=== PATIENT | male | born 1965 | race Caucasian/White ===

== ENCOUNTER 2020-11-29 07:46 | Day surgery (SDC) | payer BC ==
[2020-11-25 10:34] VITALS: BMI 29.1
[~2020-11-29 07:46] MED LIST: LACTATED RINGERS 1,000 ML IV SCH; LIDOCAINE 1% (10MG/ML) FOR IV START INTRADERMA PRN
[2020-11-29] MEDS ORDERED: LIDOCAINE 1% (10MG/ML) FOR IV START INTRADERMA ONE (08:22)
[2020-11-29] MEDS ORDERED: INSULIN ASPART (NovoLOG) 100 UNIT/ML VIAL SQ ONE (08:24)
[2020-11-29] MEDS ORDERED: LIDOCAINE 1% INJ 10MG/ML (20 ML MDV) ONE (08:25)
[2020-11-29] MEDS ORDERED: PROPOFOL 10 MG/ML 20 ML VIAL IV ONE (08:25)
[2020-11-29 08:26] LABS: Glucose,Whole Blood 250 mg/dL (75-99)
[2020-11-29 08:31] VITALS: RESP 16; TEMP 97.3
--- NOTE | 2020-11-29 09:08 | P.PCN ---
Date of Procedure: 11/29/20 Description of Procedure: BRIEF HISTORY: Patient is a 55-year-old male presenting for outpatient colonoscopy for evaluation of history of colon polyps. He denies any change in bowel habits or blood per rectum. He has had polypectomy in the past and reports 2 prior colonoscopies PROCEDURE PERFORMED: Colonoscopy with polypectomy. PREOPERATIVE DIAGNOSIS: History of colon polyps, last colonoscopy 35 years ago. ESTIMATED BLOOD LOSS: Minimal. IV sedation per Anesthesia. PROCEDURE: After informed consent was obtained, the patient, was brought into the endoscopy unit. IV sedation was administered by Anesthesia under continuous monitoring. Digital rectal examination was normal. Initially the Olympus CF-190 flexible video colonoscope was then inserted in the rectum, gradually advanced into the cecum without any difficulty. Careful examination was performed as the scope was gradually being withdrawn. Ileocecal valve and the appendiceal orifice were visualized and appeared normal. Prep was excellent. Mucosa of the cecum, ascending colon, transverse colon, descending colon, sigmoid colon, and rectum appeared normal. Sessile polyps measuring in size from 3 mm to 6 mm removed from the transverse colon, descending colon, sigmoid colon 2 and rectum 3 with cold snare polypectomy. A few diverticula noted in the sigmoid colon. Retroflexion was performed in the rectum and no lesions were seen, internal hemorrhoids. The patient tolerated the procedure well. IMPRESSION: 7 polyps removed with cold snare polypectomy from the transverse colon, descending colon, sigmoid colon 2 and rectum 3. Mild sigmoid diverticulosis. Low-grade internal hemorrhoids. RECOMMENDATIONS: Findings of this examination were discussed with the patient and his family. Okay to resume diet. Okay to resume medications. Await pathology from polypectomies. Recommend repeat colonoscopy in 3 years for colon polyps pending pathology from polypectomies.
[2020-11-29 09:26] VITALS: BP 114/47; PULSE 77
== END 2020-11-29 09:43 | disposition home or self-care (01) ==
LOC: ORWHC2ENDO 07:46
PROVIDERS: ATTEND Internal Medicine
DX: Z86.010 Personal history of colon polyps (principal); D12.4 Benign neoplasm of descending colon; D12.5 Benign neoplasm of sigmoid colon; D12.3 Benign neoplasm of transverse colon; D12.8 Benign neoplasm of rectum; K57.30 Diverticulosis of large intestine without perforation or abscess without bleeding; K64.8 Other hemorrhoids; I10 Essential (primary) hypertension; E78.5 Hyperlipidemia, unspecified; E11.9 Type 2 diabetes mellitus without complications; Z79.84 Long term (current) use of oral hypoglycemic drugs; Z79.899 Other long term (current) drug therapy; Z88.8 Allergy status to other drugs, medicaments and biological substances
CPT/HCPCS: 88305; 45385; J2001; J2704

== ENCOUNTER 2024-05-29 08:45 | Day surgery (SDC) | payer BC, OTHER ==
[2024-05-27 13:18] VITALS: BMI 27.8
[2024-05-29 09:05] VITALS: RESP 16; TEMP 98
[2024-05-29] MEDS: LIDOCAINE 1% (10MG/ML) FOR IV START INTRADERMA PRN (09:09)
[2024-05-29] MEDS: LACTATED RINGERS 1,000 ML IV SCH (09:09)
[2024-05-29] MEDS: IV FLUID CONTINUATION 1,000 ML IV ONE (09:10)
[2024-05-29] MEDS ORDERED: LIDOCAINE 1% INJ 10MG/ML (20 ML MDV) ONE (09:23)
[2024-05-29] MEDS ORDERED: PROPOFOL 10 MG/ML 20 ML VIAL IV ONE (09:23)
--- NOTE | 2024-05-29 09:50 | P.PCN ---
Date of Procedure: 05/29/24 Procedure(s) Performed: BRIEF HISTORY: Patient is a 58-year-old pleasant white male scheduled for an elective colonoscopy as a part of evaluation of prior history of colon polyps. Last colonoscopy was 3 years ago and was noted to have multiple colon polyps. PROCEDURE PERFORMED: Colonoscopy with snare polypectomy. PREOPERATIVE DIAGNOSIS: History of colon polyps. IV sedation per Anesthesia. PROCEDURE: After informed consent was obtained, the patient, was brought into the endoscopy unit. IV sedation was administered by Anesthesia under continuous monitoring. Digital rectal examination was normal. Initially the Olympus CF-160 flexible video colonoscope was then inserted in the rectum, gradually advanced into the cecum without any difficulty. Careful examination was performed as the scope was gradually being withdrawn. Ileocecal valve and the appendiceal orifice were visualized and appeared normal. Prep was excellent. Mucosa of the cecum, ascending colon, transverse colon, normal. The descending colon there was a 8 mm polyp that was removed by cold snare polypectomy. Scattered left-sided diverticulosis seen. Rest of the descending colon, sigmoid colon, and rectum appeared normal. Retroflexion was performed in the rectum and no lesions were seen. The patient tolerated the procedure well. IMPRESSION: 8 mm descending colon polyp status post cold snare polypectomy Scattered sigmoid diverticulosis Small internal hemorrhoids RECOMMENDATIONS: Findings of this examination were discussed with the patient as well as his family. He was advised to follow-up with the biopsy results. And recommended repeat colonoscopy in 5 years..
[2024-05-29 10:18] VITALS: BP 139/83; PULSE 73
[2024-06-05 11:46] LABS: Glucose,Whole Blood 116 mg/dL (70-110)
== END 2024-05-29 10:47 | disposition home or self-care (01) ==
LOC: ORWHC2ENDO 08:45
PROVIDERS: ATTEND Internal Medicine Gastroenterology
DX: Z86.010 Personal history of colon polyps
CPT/HCPCS: 45385; 88305